=== PATIENT | female | born 2000 | race African-American/Black ===

== ENCOUNTER 2021-06-27 17:15 | Emergency (ER) | payer MEDICAID ==
[~2021-06-27] VITALS: Ht 167.6 cm; Wt 109.0 kg
[2021-06-27 17:55] VITALS: BP 158/88
[2021-06-27 22:21] LABS: CLARITY URINE CLOUDY (CLEAR); COLOR URINE YELLOW (YELLOW); KETONES URINE NEGATIVE (NEGATIVE); LEUKOCYTE ESTERASE URINE 1+ (NEGATIVE); NITRITE URINE NEGATIVE (NEGATIVE); OCCULT BLOOD URINE NEGATIVE (NEGATIVE); PROTEIN URINE 1+ (NEGATIVE); SPECIFIC GRAVITY URINE 1.014 (1.005-1.030); UROBILINOGEN URINE 0.2 E.U./dL (0.2-1.0)
[2021-06-27] MEDS ORDERED: CIPR-263 MT (23:02)
[2021-06-27] MEDS ORDERED: CEFTRIAXONE SODIUM 500 MG/VIAL IM ONE (23:30)
[2021-06-28] MEDS ORDERED: DOXY100C5 MT (00:15)
== END 2021-06-27 20:32 | disposition home or self-care (01) ==
LOC: ER 17:15
DX: R30.0 Dysuria (principal)
CPT/HCPCS: 81003; 81025; 82140; 96372; 99283; J0696